=== PATIENT | female | born 1975 | race Caucasian/White ===

== ENCOUNTER 2019-07-29 20:44 | Observation (INO) | payer BC ==
[~2019-07-29] VITALS: Ht 175.3 cm; Wt 100.4 kg
[~2019-07-29 20:44] MED LIST: CEPHALEXIN500 M1 PO; ZITHROMAX500 MG PO
--- NOTE | 2019-07-29 20:58 | NUR ---
BY WC TO ROOM
[2019-07-29 21:22] LABS: URINE BILIRUBIN - DIPSTICK NEGATIVE (NEGATIVE); URINE BLOOD DIPSTICK NEGATIVE (NEGATIVE); URINE COLOR YELLOW; URINE GLUCOSE - DIPSTICK NEGATIVE (NEGATIVE); URINE KETONE NEGATIVE (NEGATIVE); URINE LEUK ESTERASE NEGATIVE (NEGATIVE); URINE NITRITE - DIPSTICK NEGATIVE (Negative); URINE PH 6.5 (4.5-8.0); URINE PROTEIN - DIPSTICK NEGATIVE (NEG-TRACE); URINE SPECIFIC GRAVITY <=1.005; URINE UROBILINOGEN - DIPSTICK 0.2 E.U./dL (0.2)
[2019-07-29 21:25] LABS: BARBITURATES NEGATIVE (NEGATIVE); COCAINE NEGATIVE (NEGATIVE); METHADONE NEGATIVE (NEGATIVE); OXCYCODONE NEGATIVE (NEGATIVE); TETRAHYDROCANNABIONOL NEGATIVE (NEGATIVE); TRICYLIC ANTIDEPRESSANTS NEGATIVE (NEGATIVE)
[2019-07-29 21:35] LABS: GFR > 60 ML/MIN (>=60 (CALC)); GFR FOR AFR.AMER. > 60 ML/MIN (>=60 (CALC))
[2019-07-29 21:44] LABS: HEMATOCRIT 44.1 % (37.0-47.0); HEMOGLOBIN 14.8 g/dl (12.0-16.0); IMMATURE GRANULOCYTES 0.4 % (0.0-5.0); MEAN CORPUSCULAR HGB 32.9 pG CALC (26.0-32.0); MEAN CORPUSCULAR HGB CONC 33.6 g/L CALC (32.0-36.0); NEUT# 7.68 thou/uL (2.00-7.15); RED BLOOD COUNT 4.5 mill/uL (4.20-5.60)
[2019-07-29 21:54] LABS: ALBUMIN 4.2 g/dL (3.2-5.0); ALKALINE PHOSPHATASE 81 u/l (38-126); ANION GAP 14 (6-22 (CALC)); BILIRUBIN, TOTAL 0.4 mg/dL (0.0-1.4); BUN 16 mg/dL (7-17); BUN/CREATININE RATIO 20 (12-20 (CALC)); CARBON DIOXIDE 21 mmol/l (22-30); CHLORIDE 106 mmol/l (95-108); CREATININE 0.8 mg/dL (0.5-1.0); GFR > 60 ML/MIN (>=60 (CALC)); GFR FOR AFR.AMER. > 60 ML/MIN (>=60 (CALC)); POTASSIUM 3.7 mmol/l (3.5-5.1); SGOT/AST 24 u/l (14-36); SODIUM 138 mmol/l (137-146); TOTAL PROTEIN 7.5 g/dL (6.3-8.2)
[2019-07-29 22:05] LABS: MYOGLOBIN 13 ng/mL (0 - 62)
--- NOTE | 2019-07-29 22:44 | NUR ---
ASSUMED CARE. PT IS A/O ELISABETH GRASP EQUAL AND STRONG. GONZALEZ. ONLY C/O HEAD NOT FEELING RIGHT AND LEFT CHEEK IS DULL. OTHERWISE NEURO INTACT. XRAY NOW AT BEDSIDE.
--- NOTE | 2019-07-29 23:09 | NUR ---
ATTEMPTED TO CALL REPORT. NURSE IN ROOM.
--- NOTE | 2019-07-29 23:21 | NUR ---
REPORT TO NIKKIE, MED-SURG
--- NOTE | 2019-07-29 23:23 | NUR ---
TO FLOOR VIA STRETCHER WITH POCKET MONITOR IN PLACE. NO CHANGE IN NEURO STATUS. UPON ARRIVAL TO FLOOR, PT AMBULATORY TO SCALE AND THEN TO BR. 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
[2019-07-29 23:28] VITALS: BP 148/94
--- NOTE | 2019-07-29 23:38 | NUR ---
PT. ARRIVED TO THE FLOOR VIA STRETCHER ACCOMPANIED BY ER NURSE AT 2330. ORIENTED TO CALL LIGHT, ROOM, AND POC; VERBALIZES UNDERSTANDING. ADMISSION ASSESSMENT COMPLETED. IV SITE PATENT AND SL. TELEMETRY IN PLACE. C/O SLIGHT [place] AND DENIES NEEDS FOR PAIN MEDICATIONS. PT. REPORTS SLIGHT DULLNESS TO LEFT CHEEK. NEURO CHECK WNL. PT. DOES REPORT SHE HAD A SMALL DOSE OF COCAINE LAST ON TUESDAY EVENING. INSTRUCTED PT. TO CALL FOR ANY NEEDS. CALL LIGHT IS IN REACH.
--- NOTE | 2019-07-30 03:00 | NUR ---
RESTING IN BED WITH EYES CLOSED. RESP. EVEN AND UNLABORED. CALL LIGHT IS IN REACH.
[2019-07-30 05:09] VITALS: BP 107/63
--- NOTE | 2019-07-30 05:13 | NUR ---
PT. RESTING IN BED WITH NO DISTRESS NOTED; DENIES NEEDS. CALL LIGHT IS IN REACH. VSS.
--- NOTE | 2019-07-30 08:00 | NUR ---
REPORT RECEIVED FROM CHERRY LUNDY. PT IS BED. RESPIRATION EVEN AND UNLABORED. PT C/O HEADACHE OF 08/13. DENIES NEED FOR ANY MEDS FOR PAIN AT THIS TIME. PT ABLE TO MAKE NEEDS KNOWN. ACCOUNT MANAGER WILL CONTINUE TO MONITOR
[2019-07-30 10:35] VITALS: BP 115/71
[2019-07-30 10:48] LABS: CHOLESTEROL HDL RATIO 4.1 (<4.4 (CALC))
--- NOTE | 2019-07-30 12:29 | NUR ---
PATIENT WAS GIVEN TYLENOOL FOR C/O 4/10 HEADACHE AT 1041 WITH GOOD EFFECT. PT AGREES TO NOTIFY LAND LEASES AND RENTALS MANAGER OF ANY CONCERN. LAND LEASES AND RENTALS MANAGER WILL CONTINUE TO MONITOR
--- NOTE | 2019-07-30 14:14 | NUR ---
PT STATES THAT SHE PULLED OUT HER IV BY MISTAKE. NO S/S OF TRAUMA AT IV SITE. SKIN INTACT. PT TRANSPORTED TO MRI WITHOUT CONTRAST. CREAM TESTER WILL REINSERT IV WHEN PT RETURNS TO [facility]
[2019-07-30 15:43] VITALS: BP 118/76
[2019-07-30] MEDS ORDERED: FIORICET PO (15:50)
--- NOTE | 2019-07-30 16:06 | NUR ---
ANGIOCATH #22 ON LFA. PT TOLERATED PROCEDURE WELL. PT DENIES PAIN OR DISCOMFORT. PT CONTINUES TO C/O MILD HEADACHE. UPHOLSTERER HELPER WILL CONTINUE TO MONITOR
[2019-07-30 18:29] VITALS: BP 112/67
--- NOTE | 2019-07-30 18:40 | NUR ---
PT D/C HOME. D/C INSTRUCTIONS REVIEWED WITH PT. SCRIPT GIVEN TO PATIENT. PT VERBALIZED UNDERSTANDING AND AGREES WITH POC. [facility]
== END 2019-07-30 19:00 | disposition home or self-care (01) | DRG 305 ==
LOC: ED 20:44 → ED-I 22:21 → ED 22:37 → MS2 22:38
PROVIDERS: Emergency Medicine; Nurse Practitioner Family; ADMIT Internal Medicine; ATTEND Internal Medicine
DX: I16.0 Hypertensive urgency (principal); I10 Essential (primary) hypertension; F17.210 Nicotine dependence, cigarettes, uncomplicated
CPT/HCPCS: G0378

== ENCOUNTER 2022-01-05 17:43 | Emergency (ER) | payer BC ==
[~2022-01-05] VITALS: Ht 175.3 cm; Wt 86.3 kg
[~2022-01-05 17:43] MED LIST changes: +FIORICET PO
[2022-01-05 19:31] LABS: HEMATOCRIT 46.9 % (37.0-47.0); HEMOGLOBIN 15.7 g/dl (12.0-16.0); IMMATURE GRANULOCYTES 0.2 % (0.0-5.0); MEAN CELL VOLUME 98.9 fL CALC (80.0-100.0); MEAN CORPUSCULAR HGB 33.1 pG CALC (26.0-32.0); MEAN CORPUSCULAR HGB CONC 33.5 g/dL CAL (32.0-36.0); NEUT# 8.58 thou/uL (2.00-7.15); RED BLOOD COUNT 4.74 mill/uL (4.20-5.60)
[2022-01-05 19:44] LABS: ALBUMIN 4.2 g/dL (3.2-5.0); ALKALINE PHOSPHATASE 90 u/l (38-126); ANION GAP 12 (6-22 (CALC)); BILIRUBIN, TOTAL 0.5 mg/dL (0.0-1.4); BUN 11 mg/dL (7-17); BUN/CREATININE RATIO 17 (12-20 (CALC)); CARBON DIOXIDE 21 mmol/l (22-30); CHLORIDE 107 mmol/l (95-108); CREATININE 0.6 mg/dL (0.5-1.0); GFR FOR AFR.AMER. > 60 ML/MIN (>=60 (CALC)); GFR OTHER RACES > 60 ML/MIN (>=60 (CALC)); SGOT/AST 19 u/l (14-36); SODIUM 136 mmol/l (137-146); TOTAL PROTEIN 7.4 g/dL (6.3-8.2)
[2022-01-05 20:24] LABS: URINE BILIRUBIN - DIPSTICK NEGATIVE (NEGATIVE); URINE BLOOD DIPSTICK NEGATIVE (NEGATIVE); URINE COLOR YELLOW; URINE GLUCOSE - DIPSTICK NEGATIVE (NEGATIVE); URINE KETONE NEGATIVE (NEGATIVE); URINE LEUK ESTERASE NEGATIVE (NEGATIVE); URINE PH 5.5 (4.5-8.0); URINE PROTEIN - DIPSTICK NEGATIVE (NEG-TRACE); URINE SPECIFIC GRAVITY >=1.030; URINE UROBILINOGEN - DIPSTICK 0.2 E.U./dL (0.2)
[2022-01-05 20:38] LABS: URINE NITRITE - DIPSTICK NEGATIVE (Negative)
[2022-01-05 21:16] VITALS: BP 130/84
[2022-01-05] MEDS ORDERED: FIORICET PO ×2 (21:32→22:31)
[2022-01-05] MEDS ORDERED: CYCLOBENZAPRINE10 MG PO (22:44)
== END 2022-01-05 22:49 | disposition home or self-care (01) | DRG 556 ==
LOC: ED 17:43
PROVIDERS: Nurse Practitioner
DX: M62.838 Other muscle spasm (principal); F17.200 Nicotine dependence, unspecified, uncomplicated; S61.411A Laceration without foreign body of right hand, initial encounter; W25.XXXA Contact with sharp glass, initial encounter; Z20.822 Contact with and (suspected) exposure to COVID-19